=== PATIENT | female | born 1995 ===

== ENCOUNTER 2021-12-07 09:43 | Outpatient (CLI) | payer OTHER | END 2021-12-07 10:55 | disposition home or self-care (01) | LOC: PRENATAL 09:43 | PROVIDERS: ATTEND Obstetrics & Gynecology Maternal & Fetal Medicine | DX: Z34.02 Encounter for supervision of normal first pregnancy, second trimester (principal); Z3A.15 15 weeks gestation of pregnancy ==

== ENCOUNTER 2022-01-14 13:27 | Outpatient (CLI) | payer OTHER ==
[2022-02-16] MEDS ORDERED: LEVOXYL75 MCG PO (14:09)
== END 2022-01-14 16:20 | disposition home or self-care (01) ==
LOC: PRENATAL 13:27
PROVIDERS: ATTEND Obstetrics & Gynecology Maternal & Fetal Medicine
DX: O35.0XX0 Maternal care for (suspected) central nervous system malformation in fetus, not applicable or unspecified (principal); O35.3XX0 Maternal care for (suspected) damage to fetus from viral disease in mother, not applicable or unspecified; O99.280 Endocrine, nutritional and metabolic diseases complicating pregnancy, unspecified trimester; Z3A.20 20 weeks gestation of pregnancy

== ENCOUNTER 2022-04-07 13:43 | Outpatient (CLI) | payer OTHER ==
[~2022-04-07 13:43] MED LIST: LEVOXYL75 MCG PO
== END 2022-04-07 15:30 | disposition home or self-care (01) ==
LOC: PRENATAL 13:43
PROVIDERS: ATTEND Obstetrics & Gynecology Maternal & Fetal Medicine
DX: O26.849 Uterine size-date discrepancy, unspecified trimester (principal); O35.0XX0 Maternal care for (suspected) central nervous system malformation in fetus, not applicable or unspecified; O99.280 Endocrine, nutritional and metabolic diseases complicating pregnancy, unspecified trimester; O44.00 Complete placenta previa NOS or without hemorrhage, unspecified trimester; Z3A.32 32 weeks gestation of pregnancy